=== PATIENT | male | born 1950 | race Caucasian/White ===

== ENCOUNTER 2017-04-22 09:49 | Emergency (ER) | payer MEDICARE ==
[~2017-04-22] VITALS: Ht 175.3 cm; Wt 109.0 kg
[~2017-04-22 09:49] MED LIST: ACEBUTOLOL200 MG PO; CELEXA20 MG PO; ISOSORB MONO60 MG PO; KLONOPIN1 MG PO; KLOR-CON M2020 MEQ PO; LACTULOSE PO; LEVEMIR SC; LINZESS145 MCG PO; NOVOLOG FLEXPEN SC; PHENERGAN25 MG/TAB PO; PRILOSEC40 MG PO; RANITIDINE150 MG PO; SPIRONOLACTONE50 MG PO; ULTRAM50 MG PO; VIREAD300 MG PO; XANAX0.5 MG PO
[2017-04-22 10:26] LABS: HEMATOCRIT 39.7 % (39.0-50.0); IMMATURE GRANULOCYTES 0.4 % (0.0-1.0); MEAN CELL VOLUME 86.7 fL CALC (80.0-100.0); MEAN CORPUSCULAR HGB CONC 33.5 g/L CALC (32.0-36.0); NEUT# 3.91 thou/uL (1.82-7.42); RED BLOOD COUNT 4.58 mill/uL (4.70-6.10); RED CELL DISTRI WIDTH 14.4 % (11.5-15.5)
[2017-04-22 10:37] LABS: HEMOGLOBIN 13.3 g/dl (14.0-18.0)
[2017-04-22 10:46] VITALS: BP 163/78
[2017-04-22 10:47] LABS: ANION GAP 15 (6-22 (CALC)); BUN 12 mg/dL (8-23); BUN/CREATININE RATIO 11 (12-20 (CALC)); CARBON DIOXIDE 26 mmol/l (22-30); CHLORIDE 97 mmol/l (95-108); CREATININE 1.1 mg/dL (0.7-1.3); GFR > 60 ML/MIN (>=60 (CALC)); GFR FOR AFR.AMER. > 60 ML/MIN (>=60 (CALC)); POTASSIUM 4.4 mmol/l (3.5-5.1); SODIUM 135 mmol/l (137-146)
== END 2017-04-22 10:44 | disposition short-term general hospital (02) ==
LOC: ED 09:49
PROVIDERS: Family Medicine
DX: R07.9 Chest pain, unspecified (principal); I21.3 ST elevation (STEMI) myocardial infarction of unspecified site; I25.2 Old myocardial infarction; I10 Essential (primary) hypertension; I25.810 Atherosclerosis of coronary artery bypass graft(s) without angina pectoris; Z95.1 Presence of aortocoronary bypass graft; Z95.5 Presence of coronary angioplasty implant and graft; E11.9 Type 2 diabetes mellitus without complications; Z79.4 Long term (current) use of insulin
CPT/HCPCS: J0282

== ENCOUNTER 2020-10-01 13:52 | Observation (INO) | payer MEDICARE ==
[~2020-10-01] VITALS: Ht 175.3 cm; Wt 113.0 kg
[~2020-10-01 13:52] MED LIST changes: +ATIVAN1 M1 PO; +BUSPIRONE HCL7.5 MG PO; +BUSPIRONE5 MG PO; +CELEXA20 M1 PO; +KLOR-CON 1010 MEQ PO; +LASIX 40 MG TAB40 MG PO; +LINZESS145 MCG; +MECLIZINE25 MG PO; +MORPHINE SUL30 M3 PO; +OMEPRAZOLE10 MG PO; +PROCHLORPER IJ; +RANITIDINE150 M1 PO; +SPIRONOLACT100 MG PO; +TEMAZEPAM30 MG PO; +TRUVADA1 TA1 PO
--- NOTE | 2020-10-01 14:51 | NUR ---
TO ROOM FOR TRIAGE
--- NOTE | 2020-10-01 15:23 | NUR ---
Reassessment of patient completed. No distress noted.
--- NOTE | 2020-10-01 15:47 | NUR ---
URINE SPECIMEN COLLECTED, PATIENT IS REDDENED TO THE INNER RIGHT GROIN. PATIENT STATES HE HAS A RASH.
[2020-10-01 16:10] LABS: MEAN CORPUSCULAR HGB 35.7 pG CALC (26.0-32.0); MEAN CORPUSCULAR HGB CONC 34.1 g/dL CAL (32.0-36.0); RED BLOOD COUNT 2.83 mill/uL (4.70-6.10); RED CELL DISTRI WIDTH 15.5 % (11.5-15.5)
[2020-10-01 16:12] LABS: ALKALINE PHOSPHATASE 69 u/l (38-126); ANION GAP 6 (6-22 (CALC)); BILIRUBIN, TOTAL 3.3 mg/dL (0.0-1.4); BUN 22 mg/dL (8-23); BUN/CREATININE RATIO 19 (12-20 (CALC)); CARBON DIOXIDE 30 mmol/l (22-30); CHLORIDE 101 mmol/l (95-108); CREATININE 1.2 mg/dL (0.7-1.3); GFR 60 ML/MIN (>=60 (CALC)); GFR FOR AFR.AMER. > 60 ML/MIN (>=60 (CALC)); SGOT/AST 120 u/l (19-48); SODIUM 133 mmol/l (137-146); TOTAL PROTEIN 5.4 g/dL (6.3-8.2)
[2020-10-01 16:15] LABS: ALBUMIN 2.2 g/dL (3.2-5.0)
[2020-10-01 16:19] LABS: PROTHROMBIN TIME 17.6 SECONDS (9.0-12.5)
[2020-10-01 16:24] LABS: MYOGLOBIN 192 ng/mL (0 - 121)
[2020-10-01 16:27] LABS: HEMATOCRIT 29.6 % (39.0-50.0); HEMOGLOBIN 10.1 g/dl (14.0-18.0); MEAN CELL VOLUME 104.6 fL CALC (80.0-100.0)
[2020-10-01 16:28] LABS: IMMATURE GRANULOCYTES 0.3 % (0.0-5.0); NEUT# 2.21 thou/uL (1.82-7.42)
[2020-10-01 16:35] LABS: URINE BILIRUBIN - DIPSTICK NEGATIVE (NEGATIVE); URINE BLOOD DIPSTICK SMALL (NEGATIVE); URINE COLOR YELLOW; URINE GLUCOSE - DIPSTICK NEGATIVE (NEGATIVE); URINE KETONE NEGATIVE (NEGATIVE); URINE LEUK ESTERASE NEGATIVE (NEGATIVE); URINE PH 7.5 (4.5-8.0); URINE PROTEIN - DIPSTICK NEGATIVE (NEG-TRACE); URINE SPECIFIC GRAVITY 1.015; URINE UROBILINOGEN - DIPSTICK 0.2 E.U./dL (0.2)
[2020-10-01 16:37] LABS: INTERNATIONAL NORMALIZED RATIO 1.7 RATIO (0.7-1.3)
[2020-10-01 16:37] LABS: URINE NITRITE - DIPSTICK NEGATIVE (Negative)
[2020-10-01 16:45] LABS: URINE WBC 0-2 WBC/hpf (0-5)
--- NOTE | 2020-10-01 17:55 | NUR ---
PATIENT ASSISTED TO CLEAN AFTER URINATION ON SELF
--- NOTE | 2020-10-01 19:15 | NUR ---
MEAL TRAY AT BEDSIDE. PT ATE 75%. TOLERATED WELL. 240 ORAL FLUIDS. WILL CONTINUE TO MONITOR. NO DISTRESS.
--- NOTE | 2020-10-01 19:15 | NUR ---
REPORT TO MITALI Lay RN
--- NOTE | 2020-10-01 20:00 | NUR ---
PATIENT RESTING IN BED AT THIS TIME-AWAKE ALERT AND ORIENTEDX3. PATIENT DENIES ANY PAIN AT THIS TIME. IVF NS PATENT AND INFUSING VIA RAC SITE AT 75CC/HR. PATIENT ON ISOLATION FOR COVID. NONE PRODUCTIVE COUGH. STATES THAT HE IS HAVING NASAL SECREATIONS THAT ARE GREEN. LUNGS ARE CLEAR. DENIES ANY DIFFICULTY WITH URINATION. NO BM TODAY. ENCOURAGED PRONING WHEN POSSIBLE. ENCOURAGED IS Q1H WHILE AWAKE IN REPS OF 10. ABLE TO DEMONSTRATE PROPER USE OF THE DEVICE.
--- NOTE | 2020-10-01 20:30 | NUR ---
PO FLUID PPROVIDED REQUESTED.
--- NOTE | 2020-10-01 20:39 | NUR ---
PT URINATED ON BED BECAUSE HE HAD TO WAIT "54 MINUTES" AND HE CAN'T STAND UP. URINAL WAS AT BEDSIDE. EXPLAINED THE COVID CONDITIONS OF THE ER.
--- NOTE | 2020-10-01 22:00 | NUR ---
PT INCONTINENT. BD SATURATED WITH URINE. SKIN CARE PROVIDED. REDNESS NOTED BETWEEN SKIN FOLDS ON LOWER ABDOMEN. LINEN AND GOWN CHANGED. EXTERNAL CATHERTER (CONDOM CATH) PLACED. PT TOLERATED WELL.
[2020-10-01] MEDS ORDERED: XIFAXAN550 MG PO (22:24)
[2020-10-01] MEDS ORDERED: ZOFRAN4 MG/TAB PO (22:26)
[2020-10-01] MEDS ORDERED: PROTONIX40 M2 PO (22:26)
[2020-10-01] MEDS ORDERED: COREG3.125 MG PO (22:27)
[2020-10-01] MEDS ORDERED: LITHIUM CARB150 MG PO (22:29)
[2020-10-01] MEDS ORDERED: SEROQUEL50 MG PO (22:30)
[2020-10-01] MEDS ORDERED: TAMSULOSIN0.4 MG PO (22:30)
[2020-10-01] MEDS ORDERED: INSULIN LI100 UNIT/1 SC (22:32)
[2020-10-01] MEDS ORDERED: NOVOLIN R100 UNIT/1 SC (22:34)
--- NOTE | 2020-10-02 01:17 | NUR ---
REPORT TO VENECIA STEWART FOR ADMIT TO FLOOR.
--- NOTE | 2020-10-02 01:20 | NUR ---
TELEBOX 9930 IN USE
--- NOTE | 2020-10-02 01:40 | NUR ---
Admission Note Report Given to: PAT Transported by: Wheelchair X Stretcher Transported with: X Nurse Transporter X Patent IV O2 X Structural Test Engineer Location: ICU X MS2
--- NOTE | 2020-10-02 01:40 | NUR ---
PT TAKEN TO FLOOR BY [facility] RETAIL PRESENTATION SPECIALIST.
[2020-10-02 01:50] VITALS: BP 115/60
--- NOTE | 2020-10-02 02:30 | NUR ---
PATIENT ADMITTED FROM ER VIA STRETCHER WITH ER STAFF IN ATTENDANCE. PATIENT IS MAX ASSIST TO THE BED. PATIENT ADMITTED FOR WEAKNESS, CONFUSION. PATIENT WITH HX OF CIRRHOSIS. AWAKE, ALERT AND ORIENTEDX2. TELE MONITOR APPLIED AND READING SR-62. PATIENT WITH SALINE LOCK TO RAC-DRESSING SOILED AND CHANGED. CONDOM CATH APPLIED TO PREVENT URINE INCONT. PATIENT WITH SEVERE TREMORS OF BOTH HANDS. TAKING PO FLUIDS WITHOUT ANY DIFFICULTY. PATIENT WITH BLE SWELLING-3+-ELEVATED FEET ON PILLOWS. PULSES ARE PALPABLE. LUNGS ARE CLEAR. ABD IS SOFT WITH BS+.LAST BM WAS 10/01. PATIENT LIVES WITH DAUGHTER. STATES THAT HE WAS RECENTLY IN [facility] AND CURRENTLY HAS HOME HEALTH CARE SERVICES THROUGH [facility]. PATIENT ORIENTED TO ROOM AND SURROUNDINGS. INSTRUCTED ON USE OF NURSE CALL LIGHT SYSTEM, TV REMOTE AND PHONE. SAFETY PRECAUTIONS REINFORCED. CALL LIGHT IN REACH. WILL CONT TO MONITOR.
[2020-10-02 04:00] VITALS: BP 121/36
--- NOTE | 2020-10-02 04:25 | NUR ---
PATIENT RESTING IN BED-POSITIONED ON RIGHT SIDE. BUTTOCKS IS RED-PHOTO TAKEN FOR THE CHART. PROVIDED WITH SNACK PER PATIENT REQUEST. BLE ELEVATED ON PILLOWS DUE SEVERE SWELLING OF BLE. SAFETY PRECAUTIONS REINFORCED. CALL LIGHT IN REACH. WILL CONT TO MONITOR.
[2020-10-02 06:57] LABS: HEMATOCRIT 28.8 % (39.0-50.0); HEMOGLOBIN 9.7 g/dl (14.0-18.0); MEAN CELL VOLUME 105.5 fL CALC (80.0-100.0); MEAN CORPUSCULAR HGB 35.5 pG CALC (26.0-32.0); MEAN CORPUSCULAR HGB CONC 33.7 g/dL CAL (32.0-36.0); RED BLOOD COUNT 2.73 mill/uL (4.70-6.10); RED CELL DISTRI WIDTH 15.4 % (11.5-15.5)
[2020-10-02 07:12] VITALS: BP 131/51
--- NOTE | 2020-10-02 07:12 | NUR ---
PATIENT RESTING IN BED AT THIS TIME. PATIENT REQUESTING TO SIGN A DNR AND PHYSICIAN NOTIFIED OF THIS. CERTIFIED TUMOR REGISTRAR DONE AT THIS TIME SEE INTERVENTIONS. PATIENT ON TELE AND BEING MONITORED BY ED. LUNGS CLEAR REDNESS ON BUTTOCKS WITH SMALL OPENING (PICS TAKEN). SIDERAILS ARE UP X 2 CALL LIGHT WITHIN REACH.
[2020-10-02 07:15] LABS: INTERNATIONAL NORMALIZED RATIO 1.8 RATIO (0.7-1.3); PROTHROMBIN TIME 18.1 SECONDS (9.0-12.5)
--- NOTE | 2020-10-02 07:18 | NUR ---
DR. ANDRADE CALLED AND HAD TO LEAVE MESSAGE REGARING CRITICAL LAB VALUE AT THIS TIME OF PLATELET OF 25. NO ANSWER ON PHONE.
[2020-10-02 07:22] LABS: ANION GAP 4 (6-22 (CALC)); BUN 20 mg/dL (8-23); BUN/CREATININE RATIO 20 (12-20 (CALC)); CARBON DIOXIDE 30 mmol/l (22-30); CHLORIDE 103 mmol/l (95-108); GFR > 60 ML/MIN (>=60 (CALC)); GFR FOR AFR.AMER. > 60 ML/MIN (>=60 (CALC)); POTASSIUM 3.4 mmol/l (3.5-5.1); SODIUM 134 mmol/l (137-146)
--- NOTE | 2020-10-02 11:47 | NUR ---
PATIENT RESTING IN BED DENEIS ANY NEEDS AT THIS TIME SIDERAILS ARE UP CALL LIGHT WITHIN REACH.
--- NOTE | 2020-10-02 14:04 | NUR ---
PATIENT REQUESITING TO SPEAK WITH ABRASIVE GRINDER REGARDING HOSPICE AND ABRASIVE GRINDER GIVEN MESSAGE. PATIENT SIGNED A DNR AT THIS TIME.
--- NOTE | 2020-10-02 15:23 | NUR ---
CONCEPCION FROM HOSPICE CALL THIS WORKER TO SPEAK ABOUT PATIENTS CONDITION AT THIS TIME. PATIENT DID GIVE CONCEPCION FROM [facility] PERMISSION TO CALL HIS DAUGHTER TO SPEAK ABOUT HOSPICE PROGRAM.
--- NOTE | 2020-10-02 15:34 | NUR ---
PATIENT LAYING IN BED AT THIS TIME. PATIENT DENIES ANY NEEDS CURRENTLY. TELE REMAINS IN PLACE AND MONITORED BY ED. SIDERAILS ARE UP CALL LIGHT WITHIN REACH.
[2020-10-02 15:53] VITALS: BP 123/48
[2020-10-02 19:00] VITALS: BP 106/35
--- NOTE | 2020-10-02 19:10 | NUR ---
REPORT RECEIVED FROM Socorro SCHUMACHER RN.
--- NOTE | 2020-10-02 20:20 | NUR ---
PATIENT RESTING COMFORTABLY. PHYSICAL ASSESMENT COMPLETED AT THIS TIME. LUNGS CLEAR BILATERALLY, NORMAL HEART SOUNDS. PITTINE EDEMA +3 NOTED ON BILATERAL LOWER EXTEEMITY #22 IN THE RIGHT HAND FLUSHED AND PATENT, HEALTHY SITE NOTED. CALL PLACED TO DAUGHTER ASKING FOR PATIENT HOME MED, LITHIUM. NO ANSWER LEFT VOICEMAIL. PLAN OF CARE REVIWED, PATIENT ORIENTED TO CALL LIGHT SYSTEM CALL LIGHGT AND BEDSIDE TABLE WITHIN REACH.
--- NOTE | 2020-10-02 23:50 | NUR ---
CALL PLACED TO LAB REGARDING PENDING PLATELET INFUSION. PRODUCT TRANSFER PUMPER STATES HE WILL FIND OUT WHAT IS THE STATUS AND CALL ME BACK.
--- NOTE | 2020-10-03 | NUR ---
PATIENT NPO AT THIS TIME
--- NOTE | 2020-10-03 | NUR ---
CALL RECEIVED FROM LAB, CLARIFICATION ON PLATELET ORDER. ORDER WAS NEVER RECEIVED FROM DAY SHIFT STAFF. TECH WILL REQUESTED PLATELETS TO BE SENT FROM [facility]. PATIENT AND RETAIL SALES SPECIALIST UPDATED.
--- NOTE | 2020-10-03 03:18 | NUR ---
PATIENT UP TO THE RESTROOM AT THIS TIME.
--- NOTE | 2020-10-03 03:23 | NUR ---
PATIENT UP TO THE RESTROOM AT THIS TIME
--- NOTE | 2020-10-03 03:23 | NUR ---
CALL RECEIVED FROM LAB. @0301 PLATELETS HAVE ARRIVED BUT THERE IS NO ORDER STILL, CAN GIVE ER DOSE. ORDER HAS BEEN IN SINCE ABOUT 1600 10/02/20 CALL PLACED TO ICU, SPOKE TO CORAL SINGH IN ICU. ORDER PRINTED AND SENT DOWN TO LAB BY SECURITY.
[2020-10-03 04:00] VITALS: BP 116/39
--- NOTE | 2020-10-03 05:00 | NUR ---
LAB ENTERED ORDERS FOR PLATLETS, SPOKE WITH MD REGARDING PATIENT EXPERIENCING PAIN, VERBAL ORDER FOR MOTRIM.INFORMED MD PATIENT HAD NOT RECEIVED PLATELETS DUE TO A MISUNDERSTANDING ON DAY SHIFT, WRITTER STATED BLOOD PRODUCTS HAVE ARRIVED. MD WILL HERE IN AM FOR CLARIFICATION OF BLOOD PRODUCTS.
[2020-10-03 05:28] LABS: HEMATOCRIT 28.3 % (39.0-50.0); HEMOGLOBIN 9.7 g/dl (14.0-18.0); MEAN CELL VOLUME 105.2 fL CALC (80.0-100.0); MEAN CORPUSCULAR HGB 36.1 pG CALC (26.0-32.0); MEAN CORPUSCULAR HGB CONC 34.3 g/dL CAL (32.0-36.0); RED BLOOD COUNT 2.69 mill/uL (4.70-6.10); RED CELL DISTRI WIDTH 15.4 % (11.5-15.5)
[2020-10-03 05:50] LABS: ANION GAP 5 (6-22 (CALC)); BUN 18 mg/dL (8-23); BUN/CREATININE RATIO 20 (12-20 (CALC)); CARBON DIOXIDE 28 mmol/l (22-30); CHLORIDE 104 mmol/l (95-108); CREATININE 0.9 mg/dL (0.7-1.3); GFR > 60 ML/MIN (>=60 (CALC)); GFR FOR AFR.AMER. > 60 ML/MIN (>=60 (CALC)); MAGNESIUM 1.5 mg/dL (1.6-2.3); POTASSIUM 3.7 mmol/l (3.5-5.1); SODIUM 133 mmol/l (137-146)
[2020-10-03 05:53] LABS: PROTHROMBIN TIME 19.6 SECONDS (9.0-12.5)
[2020-10-03 08:41] VITALS: BP 125/61
--- NOTE | 2020-10-03 09:44 | NUR ---
PT NOTE Arrived to room and patient was being transported to get an ultrasound.
--- NOTE | 2020-10-03 11:45 | NUR ---
BEDSIDE REPORT RECEIVED. PT LYING IN BED AWAKE, PT HAS PULLED OUT IV. PRESSURE APPLIED, BLEEDING SUBSIDED. MD MADE AWARE. PT STATED HE DID NOT WANT TO BE POKED ANYMORE AND WOULD LIKE PICC INSTEAD. STATED TO WAIT UNTIL US TAKES PLACE AND WILL FURTHER EVAL THEN, OK TO LEAVE IV OUT. WILL FOLLOW UP.
--- NOTE | 2020-10-03 12:52 | NUR ---
PT LYING DOWN IN BED WATCHING TV. PT REPORTED MD TO SEND PT HOME TODAY. PT IS NO LONGER NPO AND HAS EATEN.
[2020-10-03 15:03] VITALS: BP 126/65
--- NOTE | 2020-10-03 16:40 | NUR ---
PT D/C IN ROOM STILL AWAITING RIDE HOME, NO COMPLAINTS/DISTRESS.
== END 2020-10-03 17:17 | disposition home or self-care (01) ==
LOC: ED 13:52 → ED-I 16:44 → ED 16:44 → ED-I 16:45 → ED 16:51 → ED-I 16:52 → MS2 16:52
PROVIDERS: Emergency Medicine; Nurse Practitioner; ADMIT Hospitalist; ATTEND Hospitalist
DX: E72.20 Disorder of urea cycle metabolism, unspecified (principal); K72.90 Hepatic failure, unspecified without coma; B19.10 Unspecified viral hepatitis B without hepatic coma; K74.69 Other cirrhosis of liver; D69.6 Thrombocytopenia, unspecified; I10 Essential (primary) hypertension; E11.9 Type 2 diabetes mellitus without complications; J44.9 Chronic obstructive pulmonary disease, unspecified; I25.10 Atherosclerotic heart disease of native coronary artery without angina pectoris; M17.11 Unilateral primary osteoarthritis, right knee; F41.9 Anxiety disorder, unspecified; K21.9 Gastro-esophageal reflux disease without esophagitis; N40.0 Benign prostatic hyperplasia without lower urinary tract symptoms; F31.9 Bipolar disorder, unspecified; Z66 Do not resuscitate; Z95.1 Presence of aortocoronary bypass graft; Z95.5 Presence of coronary angioplasty implant and graft; Z20.822 Contact with and (suspected) exposure to COVID-19
CPT/HCPCS: G0378